=== PATIENT | male | born 1955 | race Caucasian/White ===

== ENCOUNTER → 2016-11-12 | Outpatient (CLI) | payer MEDICAID | LOC: CIMAGING 07:52 | PROVIDERS: ATTEND Physician Assistant | DX: R14.0 Abdominal distension (gaseous) (principal); R16.0 Hepatomegaly, not elsewhere classified; K76.0 Fatty (change of) liver, not elsewhere classified | CPT/HCPCS: 76700-PO ==

== ENCOUNTER → 2018-05-12 | Outpatient (CLI) | payer MEDICAID | LOC: CIMAGING 10:39 | PROVIDERS: ATTEND Physician Assistant | DX: K57.32 Diverticulitis of large intestine without perforation or abscess without bleeding (principal); K22.9 Disease of esophagus, unspecified; I25.10 Atherosclerotic heart disease of native coronary artery without angina pectoris; I77.811 Abdominal aortic ectasia; N28.9 Disorder of kidney and ureter, unspecified; R93.5 Abnormal findings on diagnostic imaging of other abdominal regions, including retroperitoneum | CPT/HCPCS: 74177-PN ==